=== PATIENT | female | born 1975 | race Caucasian/White ===

== ENCOUNTER 2021-02-09 12:27 | Outpatient (CLI) | payer BC | END 2021-02-09 12:28 | disposition critical access hospital (66) | LOC: EMS 12:27 | DX: R42 Dizziness and giddiness (principal); R51.9 Headache, unspecified; R11.0 Nausea; R53.83 Other fatigue ==

== ENCOUNTER 2021-02-09 12:33 | Emergency (ER) | payer BC, OTHER ==
--- NOTE | 2021-02-09 12:49 | ED Physician Documentation ---
History of Present Illness - Stated complaint Stated Complaint: NEAR SYNCOPE - Chief complaint Chief Complaint: Neuro - Additonal information Additional information: 45-year-old female presents the emergency department for evaluation of a near syncope event. She was at work was sitting at her desk and stood up when she began to feel suddenly faint and lightheaded. She had to steady herself against the wall to prevent herself from collapsing. She called out to a coworker who helped her to the ground. She did not have a lapse in consciousness. She denies chest pain or palpitations. She endorses some mild nausea or butterflies in her stomach. At this time right now she feels very fatigued. Past medical history is unremarkable. No history of hypertension coronary artery disease or diabetes. She takes Zoloft in house for a number of years for history of depression. Denies tobacco alcohol or cannabis use. Denies possibility of . Review of Systems Constitutional: denies: Fever, Chills Eyes: reports: Loss of vision, Decreased vision (Tunnel vision) Ears: denies: Loss of hearing, Ear pain, Tinnitus/ringing Nose: reports: Reviewed and negative Throat: reports: Reviewed and negative Cardiac: denies: Chest pain / pressure, Palpitations, Pedal edema, Calf pain Respiratory: reports: Reviewed and negative GI: reports: Reviewed and negative : reports: Reviewed and negative Skin: reports: Reviewed and negative Musculoskeletal: reports: Reviewed and negative Neurologic: reports: Near syncope. denies: Generalized weakness, Focal weakness, Numbness, Syncope, Seizure, Confused, Altered mental status, Headache, Head injury, LOC PD PAST MEDICAL HISTORY - Allergies Allergies/Adverse Reactions: Allergies Allergy/AdvReac Type Severity Reaction Status Date / Time Sulfa (Sulfonamide Allergy Hives Verified 02/09/21 12:44 Antibiotics) PD ED PE NORMAL - General General: Alert and oriented X 3, No acute distress, Well developed/nourished - HEENT HEENT: Atraumatic, Moist mucous membranes, Pharynx benign - Neck Neck: Supple, no meningeal sign - Cardiac Cardiac: RRR, No murmur, No gallop, No rub, Strong equal pulses - Respiratory Respiratory: Clear bilaterally - Abdomen Abdomen: Normal bowel sounds, Soft, Non tender, Non distended - Back Back: No CVA TTP, No spinal TTP - Derm Derm: Normal color, Warm and dry, No rash - Extremities Extremities: No deformity - Neuro Neuro: Alert and oriented X 3, 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, No motor deficit Eye Opening: Spontaneous Motor: Obeys Commands Verbal: Oriented GCS Score: 15 - Psych Psych: Normal mood Results - Vitals Vitals: Vital Signs - 24 hr 02/09/21 02/09/21 12:40 13:29 Temperature 36.6 C Heart Rate 74 Heart Rate [ 68 Sitting] Heart Rate [ 68 Standing] Heart Rate [ 68 Supine] Respiratory 13 Rate Blood Pressure 133/73 H Blood Pressure 132/70 H [Sitting] Blood Pressure 134/74 H [Standing] Blood Pressure 134/74 H [Supine] O2 Saturation 100 Oxygen O2 Source Room air - EKG (time done) 1306 Rate: Rate (enter#) (67) Rhythm: NSR [place]: Normal Intervals: Normal HI QRS: Normal Ischemia: Normal ST segments Compare to prior EKG: Old EKG unavailable Computer interpretation: Agree with computer - Labs Labs: Laboratory Tests 02/09/21 02/09/21 02/09/21 12:43 12:43 12:43 WBC 6.5 RBC 4.86 Hgb 14.0 Hct 42.8 MCV 88.1 MCH 28.8 MCHC 32.7 RDW 12.7 Plt Count 333 MPV 9.5 Neut # (Auto) 3.7 Lymph # (Auto) 2.0 [place] # (Auto) 0.4 Eos # (Auto) 0.3 Baso # (Auto) 0.1 Absolute Nucleated RBC 0.00 Nucleated RBC % 0.0 Sodium 138 Potassium 3.6 Chloride 101 Carbon Dioxide 27 Anion Gap 10.0 BUN 10 Creatinine 0.7 Estimated GFR (MDRD) 90 Glucose 100 Calcium 9.1 Total Bilirubin 0.4 AST 21 ALT 17 Alkaline Phosphatase 57 Troponin I High Sens < 2.3 L Total Protein 8.0 Albumin 4.5 Globulin 3.5 Albumin/Globulin Ratio 1.3 Lipase 34 TSH HCG, Quant 02/09/21 02/09/21 12:43 12:43 WBC RBC Hgb Hct MCV MCH MCHC RDW Plt Count MPV Neut # (Auto) Lymph # (Auto) [place] # (Auto) Eos # (Auto) Baso # (Auto) Absolute Nucleated RBC Nucleated RBC % Sodium Potassium Chloride Carbon Dioxide Anion Gap BUN Creatinine Estimated GFR (MDRD) Glucose Calcium Total Bilirubin AST ALT Alkaline Phosphatase Troponin I High Sens Total Protein Albumin Globulin Albumin/Globulin Ratio Lipase TSH 1.24 HCG, Quant < 0.60 - Rads (name of study) CXR Radiology: Final report received (no acute cardiopulmonary findings) PD MEDICAL DECISION MAKING - ED course Complexity details: reviewed results, re-evaluated patient, d/w patient, d/w family ED course: 45-year-old female presents the emergency department for evaluation of a near syncope event. She was sitting at her desk when she stood up she began to feel suddenly faint and lightheaded and began to have darkening of her vision. She had to hold onto the wall and asked a coworker for assistance and she was helped to the ground. She had some persistent nausea for a while which is now fully dissipated. She had no headache, chest pain, shortness of air, palpitations, diaphoresis. At the time of her evaluation in the ER she says that she feels fine just very tired. No pertinent past medical history with exception of some mild depression for which she takes Zoloft. Screening EKG is sinus rhythm and nonischemic. Chest x-ray unremarkable. Screening labs including a CBC chemistry and troponin are all unremarkable. Patient is PERC negative doubt PE. Patient was given some Zofran as well as a liter of IV fluids with marked improvement in her symptoms. Orthostatic blood pressures were checked and were unremarkable. She was not hypoglycemic. At this time the cause of the near syncope is not clear. I have recommended close follow-up with primary care provider. She may benefit from the use of a Holter monitor for further evaluation especially if the lightheaded symptoms become more recurrent. Emergent return precautions were discussed for any fainting episodes, chest pain and shortness of air. Departure - Departure Disposition: 01 Home, Self Care Clinical Impression: Near syncope Condition: Stable Record reviewed to determine appropriate education?: Yes Instructions: ED Near Syncope Unkn Follow-Up: Diandra Leggett ND [Primary Care Provider] - Comments: Dory you were seen in the ER today for a near fainting episode. The cause of your symptoms is not clear. Your chest x-ray, EKG and labs are all essentially normal. We did check your vital signs and different positions and those were also normal. I do recommend that you discuss this ED visit with your primary care provider. You may benefit from longer term evaluation which could include the use of a Holter monitor. If you have any fainting episodes, develop chest pain or shortness of air or feel that your symptoms are worsening please return to the ER for a second look.
[2021-02-09 12:53] LABS: BASOPHILS # (AUTO) 0.1 10^3/uL (0.0-0.1); BASOPHILS % (AUTO) 0.9 %; EOSINOPHILS # (AUTO) 0.3 10^3/uL (0.0-0.7); HCT - HEMATOCRIT 42.8 % (37.0-47.0); LYMPHOCYTES % (AUTO) 31.4 %; MEAN CORPUSCULAR HEMOGLOBIN 28.8 pg (27.0-31.0); MEAN CORPUSCULAR HGB CONC 32.7 g/dL (32.0-36.0); MEAN CORPUSCULAR VOLUME 88.1 fL (81.0-99.0); MEAN PLATELET VOLUME 9.5 fL (7.9-10.8); MONOCYTES # (AUTO) 0.4 10^3/uL (0.0-1.0); MONOCYTES % (AUTO) 6.2 %; NEUTROPHILS # (AUTO) 3.7 10^3/uL (1.5-6.6); NEUTROPHILS % (AUTO) 57.2 %; PLT - PLATELET COUNT 333 10^3/uL (130-450); RED BLOOD COUNT 4.86 10^6/uL (4.20-5.40); RED CELL DISTRIBUTION WIDTH 12.7 % (12.0-15.0); WHITE BLOOD COUNT 6.5 x10^3/uL (4.8-10.8)
--- NOTE | 2021-02-09 12:59 | XRAY Report ---
PROCEDURE: Chest 1 View X-Ray INDICATIONS: near syncope TECHNIQUE: One view of the chest was acquired. COMPARISON: None FINDINGS: Surgical changes and devices: None. Lungs and pleura: No pleural effusions or pneumothorax. Lungs are clear. Mediastinum: Mediastinal contours appear normal. Heart size is normal. Bones and chest wall: No suspicious bony lesions. Overlying soft tissues appear unremarkable. IMPRESSION: Normal chest x-ray. Reviewed by: Petros Lake on 02/09/2021 12:57 PM PDT Approved by: Petros Lake on 02/09/2021 12:57 PM PDT Station ID: [id number]
[2021-02-09] MEDS: ONDANSETRON 4 MG/2 ML VIAL IVP STA (13:00)
[2021-02-09] MEDS: SODIUM CHLORIDE 0.9% 1,000 ML IV STA (13:00)
[2021-02-09 13:18] LABS: ALBUMIN 4.5 g/dL (3.2-5.5); ALBUMIN/GLOBULIN RATIO 1.3 (1.0-2.2); BILIRUBIN,TOTAL 0.4 mg/dL (0.2-1.0); CALCIUM 9.1 mg/dL (8.5-10.3); CREATININE 0.7 mg/dL (0.4-1.0); POTASSIUM 3.6 mmol/L (3.5-5.0)
[2021-02-09 15:03] VITALS: BP 132/78
== END 2021-02-09 15:02 | disposition home or self-care (01) ==
LOC: EDUNIT# → ED 12:33
DX: R55 Syncope and collapse (principal); R42 Dizziness and giddiness; R11.0 Nausea
CPT/HCPCS: 36415; 80053; 83690; 84443; 84484; 84702; 85025; 93005; 96361; 96374; 99283